=== PATIENT | male | born 1930 | race Caucasian/White ===

== ENCOUNTER 2019-01-24 06:13 | Day surgery (SDC) | payer OTHER, MEDICARE ==
--- NOTE | 2019-01-23 13:59 | RAD REPORT ---
EXAM DESCRIPTION: Sharron Canseco And Marichuy (2 Views)01/23/2019 1:52 pm CLINICAL HISTORY: Preop for coronary arterial calcification. COPD COMPARISON: 2014 FINDINGS: Elevation right hemidiaphragm is unchanged. Lungs appear clear of acute infiltrate. The heart is normal size
[2019-01-23 14:46] LABS: Absolute Lymphocytes (CBC) 1.9 K/uL (0.7-4.9); Basophils % 0.8 % (0-1.3); Hematocrit 45.4 % (39.6-49.0); MPV 9.4 fL (7.6-11.3); RBC Red Blood Cell Count 5.04 M/uL (4.33-5.43)
[2019-01-23 14:50] LABS: Potassium 4.4 mmol/L (3.5-5.1); Protime INR 0.89
--- NOTE | 2019-01-23 15:15 | EKG ---
Test Date: 2019-01-23 Test Time: 13:39:18 Superintendent Power: SABINA MEASUREMENT RESULTS: Intervals: Rate: 101 RI: 192 QRSD: 154 QT: 422 QTc: 547 [place]: P: -52 RI: 192 QRS: -89 T: 53 INTERPRETIVE STATEMENTS: Sinus rhythm Left axis deviation Right bundle branch block Abnormal ECG Compared to ECG 03/24/2017 09:47:28 Left-axis deviation now present First degree AV block no longer present Myocardial infarct finding no longer present Electronically Signed On 01-23-19 15:15:49 CDT by Darin Maldonado
--- OUTSIDE RECORDS SUMMARY | 2019-01-24 06:16 | XMS REPORT ---
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 Problem Degenerative joint disease M19.90 Active Problem Type 2 diabetes mellitus with other E11.29 Active diabetic kidney complication Assessment Hyperlipidemia E78.5 Active Problem Proteinuria, unspecified R80.9 Active Assessment Renal insufficiency N28.9 Active Assessment 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 Problem 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 Problem Need for assistance due to unsteady R26.89 Active gait Problem Hyperlipidemia E78.5 Active Problem Neuropathy G62.9 Active Problem Renal insufficiency N28.9 Active Assessment Proteinuria, unspecified R80.9 Active Assessment Type 2 diabetes mellitus with other E11.29 Active diabetic kidney complication Assessment Chronic obstructive pulmonary J44.9 Active disease Assessment HTN (hypertension) I10 Active Problem Controlled diabetes mellitus type E11.9 Active II without complication Problem Nicotine dependence F17.200 Active Assessment Need for assistance due to unsteady R26.89 Active gait Problem HTN (hypertension) I10 Active Assessment Neuropathy G62.9 Active Problem Benign prostatic hypertrophy with N40.1 Active lower urinary tract symptoms (LUTS) Problem Anemia D64.9 Active Medications Medication Code Code Instructions Start End Status Dosage System Date Date Cozaar [facility] 81725835143 100 MG Orally Active 1 tablet Once a day Symbicort [facility] 97899072417 160-4.5 MCG/ACT December Inactive 2 puffs Inhalation 25, Twice a day 2018 Simvastatin [facility] 18431002839 20 MG Orally Active 1 tablet in Once a day the evening Amlodipine [facility] 43576048235 10 MG Oral Once Active 1 tablet Besylate a day CO-Q 10 [facility] 48397492799 - Orally Active not defined [place]-3 Fish Oil Glimepiride [facility] 77479995455 2 MG Orally Active 1 tablet twice day with food Metformin HCl [facility] 29167882409 1000 Orally Active 1 tablet Twice a day with meals Aspir-81 [facility] 01988024946 81 MG Orally Active 1 tablet Once a day Glimepiride [facility] 41200067029 2 Orally twice Active 1 tablet day with food Cozaar [facility] 36649568658 100 Orally Once Active 1 tablet a day Neomycin-Polym [facility] 16210498807 3.519594-4 March Active 4 drops yxin-HC Otic Three 2017 into times a day affected ear Zantac [facility] 02058493745 150 MG Orally Active 1 tablet at Twice a day bedtime Jardiance [facility] 32237206591 25 MG Orally Active 1 tablet Once a day Metformin HCl [facility] 94179312880 1000 MG Orally Active 1 tablet Twice a day with meals Vitamin C [facility] 07918779090 500 MG Orally Active 1 tablet Once a day Ranitidine HCl [facility] 31682434129 150 MG Oral Active 1 capsule Twice a day Trelegy [facility] 62999331184 100-62.5-December 27Mar Active 1 puff Ellipta MCG/INH 2018, Inhalation Once 2018 a day Albuterol [facility] 80422683023 90 MCG/ACT Active 2 puffs prn Inhalation wheezing every 6 hours Vitamin D3 [facility] 98556427941 1000 UNIT Active 1 capsule Orally Once a day Results No Known Results Summary Purpose eClinicalWorks Submission
--- OUTSIDE RECORDS SUMMARY | 2019-01-24 06:16 | XMS REPORT ---
:1930 Author Organization e[employer]Works Care Team Providers Name Role Phone Nj, Na Provider Role Unavailable Allergies, Adverse Reactions, Alerts Substance Reaction Event Type Sulfa Info Not Available Drug Allergy Problems Problem Type Condition Code Onset Dates Condition Status Problem HTN (hypertension) I10 Active Problem Chronic obstructive pulmonary J44.9 Active disease Problem Anemia D64.9 Active Problem Proteinuria, unspecified R80.9 Active Assessment Renal insufficiency N28.9 Active Problem Neuropathy G62.9 Active Assessment Neuropathy G62.9 Active Assessment Need for assistance due to unsteady R26.89 Active gait Problem Type 2 diabetes mellitus with other E11.29 Active diabetic kidney complication Problem Hyperlipidemia E78.5 Active Problem Degenerative joint disease M19.90 Active Problem Renal insufficiency N28.9 Active Problem Need for assistance due to unsteady R26.89 Active gait Assessment HTN (hypertension) I10 Active Assessment Proteinuria, unspecified R80.9 Active Assessment Chronic obstructive pulmonary J44.9 Active disease Assessment Hyperlipidemia E78.5 Active Problem 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 intervertebral disc Problem Benign prostatic hypertrophy with N40.1 Active lower urinary tract symptoms (LUTS) Assessment Type 2 diabetes mellitus with other E11.29 Active diabetic kidney complication Problem Controlled diabetes mellitus type E11.9 Active II without complication Problem Nicotine dependence F17.200 Active Medications Medication Code Code Instructions Start End Status Dosage System Date Date Glimepiride [facility] 73434615765 2 Orally twice Active 1 tablet day with food Neomycin-Polymy [facility] 41076261604 3.5-56265-0 September Active 4 drops cristhian-HC Otic Three 2017 into times a day affected ear Symb[place]ort [place] 54872201615 160-4.5 MCG/ACT Sept Active 2 puffs Inhalation 21, Twice a day 2018 Glimepiride [facility] 61468907062 2 MG Orally Active 1 tablet twice day with food Simvastatin ND 88697521146 20 MG Orally Active 1 tablet in Once a day the evening Albuterol [facility] 95215040349 90 MCG/ACT Active 2 puffs prn Inhalation wheezing every 6 hours Metformin HCl [facility] 33818257224 1000 Orally Active 1 tablet Twice a day with meals Vitamin D3 [facility] 03758445978 1000 UNIT Active 1 capsule Orally Once a day Vitamin C [facility] 82636700461 500 MG Orally Active 1 tablet Once a day Jardiance [facility] 73301528427 25 MG Orally Sept Active 1 tablet Once a day 2018 Metformin HCl [facility] 18762850303 1000 MG Orally Active 1 tablet Twice a day with meals Zantac [facility] 69598030605 150 MG Orally Active 1 tablet at Twice a day bedtime CO-Q 10 [place]-3 [facility] 66179549893 - Orally Active not defined Fish Oil Ranitidine HCl [facility] 95162605837 150 MG Oral Active 1 capsule Twice a day Aspir-81 [facility] 48467626963 81 MG Orally Active 1 tablet Once a day Amlodipine [facility] 74599351329 10 MG Oral Once Active 1 tablet Besylate a day Cozaar [facility] 12825691637 100 Orally Once Active 1 tablet a day Cozaar [facility] 01161124874 100 MG Orally Active 1 tablet Once a day Results No Known Results Summary Purpose eClinicalWorks Submission
[2019-01-24] MEDS ORDERED: NA CHLORIDE 0.9% 500 ML ONE (06:57)
[2019-01-24] MEDS ORDERED: LIDOCAINE 1% MPF 30 ML VIAL ONE (06:57)
[2019-01-24] MEDS ORDERED: HEPA 1000U/500MLS 1,000 UNIT/500 ML BAG IV ONE (06:57)
[2019-01-24] MEDS ORDERED: NA CHLORIDE 0.9% 0 ML ONE (07:42)
[2019-01-24] MEDS ORDERED: ATROPINE SULF 1 MG/10 ML SYR IV ONE (07:42)
[2019-01-24] MEDS ORDERED: MIDAZOLAM HCL 2 MG/2 ML INJ ONE (07:42)
[2019-01-24] MEDS ORDERED: FENTANYL CITR 100 MCG/2 ML ONE (07:42)
[2019-01-24 08:52] VITALS: TEMP 97.2
[2019-01-24 10:22] VITALS: O2SAT 97
[2019-01-24 10:23] VITALS: BP 159/75
--- NOTE | 2019-01-24 10:49 | OP ---
Date of Procedure: 01/24/2019 Surgeon: Placido Delgadillo MD Room Service Clerk: Moriah Romero. Angio-Seal was used to close the case. The patient will go home today and follow up with me in the ffice in the next 2 weeks. History Of Present Illness: Mr. 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 Procedures: Left heart catheterization, selective coronary arteriogram. Indication: Chest pain and abnormal stress test. Description Of Procedure: The patient was prepped and draped in routine sterile fashion. A 6-Yi sheath introduced in the right common femoral artery. Angiography there was normal except for sever e calcifications along the iliac arteries. No focal stenosis. Dayo catheter was used to do the h eart catheterization. The patient had a normal RCA that was dominant. He had a normal circumflex. The LAD had about 20% stenosis after the second diagonal. Otherwise, there was a large vessel that w as widely patent. There were no complications. Blood Loss: 5 cc. Anesthesia: Total conscious sedation was 30 minutes. Final Diagnoses: Mild coronary artery disease. Plan: Plan is for medical therapy. CARMELO/BOB Voice ID: [id number] Report ID: [id number]
== END 2019-01-24 10:17 | disposition home or self-care (01) ==
LOC: CCL 06:13
DX: I25.10 Atherosclerotic heart disease of native coronary artery without angina pectoris (principal); I65.23 Occlusion and stenosis of bilateral carotid arteries; I11.0 Hypertensive heart disease with heart failure; I50.32 Chronic diastolic (congestive) heart failure; E78.6 Lipoprotein deficiency; I45.10 Unspecified right bundle-branch block; R94.31 Abnormal electrocardiogram [ECG] [EKG]; E11.9 Type 2 diabetes mellitus without complications; J44.9 Chronic obstructive pulmonary disease, unspecified; K21.9 Gastro-esophageal reflux disease without esophagitis; N40.0 Benign prostatic hyperplasia without lower urinary tract symptoms; Z79.82 Long term (current) use of aspirin; Z79.84 Long term (current) use of oral hypoglycemic drugs; Z79.51 Long term (current) use of inhaled steroids; Z79.899 Other long term (current) drug therapy
CPT/HCPCS: 93005; 85025; 80048; 36415; 85610; 82962 ×2; 85730; 71046; 93454; C1893; C1760; J2250; J3010; J0583

== ENCOUNTER 2020-08-05 08:53 | Day surgery (SDC) | payer OTHER ==
[2020-08-02 10:13] LABS: Absolute Lymphocytes (CBC) 1.7 K/uL (0.7-4.9); Basophils % 0.7 % (0-1.3); Hematocrit 43.3 % (39.6-49.0); Lymphocytes % 21.7 % (15.3-44.8); MPV 8.9 fL (7.6-11.3); RBC Red Blood Cell Count 4.95 M/uL (4.33-5.43)
--- NOTE | 2020-08-02 10:19 | RAD REPORT ---
EXAM DESCRIPTION: Sharron Canseco And Marichuy (2 Views)08/02/2020 9:55 am CLINICAL HISTORY: Preop for cardiac catheterization. Lung cancer COMPARISON: 2019 FINDINGS: Right pleural thickening with mild right basilar chronic opacities. Right lung volume loss . The lungs appear clear of acute infiltrate. The heart is normal size IMPRESSION: No acute abnormalities displayed
[2020-08-02 10:25] LABS: Potassium 4.1 mmol/L (3.5-5.1)
[2020-08-02 10:36] LABS: Protime INR 0.91
--- NOTE | 2020-08-02 11:05 | EKG ---
Test Date: 2020-08-02 Test Time: 09:35:06 Track Repairer Helper: MACIEL MEASUREMENT RESULTS: Intervals: Rate: 92 [place]: QRSD: 154 QT: 418 QTc: 516 [place]: P: [place]: QRS: -87 T: 36 INTERPRETIVE STATEMENTS: Wide QRS rhythm Left axis deviation Right bundle branch block Abnormal ECG Compared to ECG 01/23/2019 13:39:18 Uncertain supraventricular rhythm now present Sinus rhythm no longer present Electronically Signed On 08-02-20 11:05:00 BLOCK SEALER by Placido Delgadillo
--- OUTSIDE RECORDS SUMMARY | 2020-08-05 09:21 | XMS REPORT | Continuity of Care Document ---
:1930 Author Organization [facility] t Address [address] [place] [address] Care Team Providers Name Role Phone Unavailable Unavailable Unavailable Problems This patient has no known problems. Allergies, Adverse Reactions, Alerts Allergy Allergy Status Severity Reaction(s) Onset Inactive Treating Comm ents Source Name Type Date Date Clinician Sulfa Adverse Active Info Not [facility] Reaction Available [facility] Clinics Medications Ordered Filled Start Stop Current Ordering Indication Dosage Frequency Signature Comments Components Source Medication Medication Date Date Medication? Clinician (SIG) Name Name Nasonex Nasonex 2020-0 Yes Na Nj [address] [facility] 1-10 in each [facility]ics Azelastine Azelastine 2019-0 Yes Na Nj [address] [facility] HCl HCl 1-10 into [facility] affected [facility] 00 eye l [facility]ics Famotidine Famotidine 2018-07 Yes Na Nj [address] [facility] 0-08 at bedtime [facility] Neomycin-Po Neomycin-Po Yes Na Nj [address] [facility] lymyxin-HC lymyxin-HC 3-05 into Tali es - 00:00: affected [facility]oria 00 ear l [facility] ent Clinics Aspir-81 Aspir-81 Yes Na Nj [address] [facility] Cozaar Cozaar Yes Na Nj [address] [facility] Ranitidine Ranitidine Yes Na Nj [address] [facility] HCl HCl [facility] Amlodipine Amlodipine Yes Na Nj [address] [facility] Besylate Besylate [facility] CO-Q 10 CO-Q 10 Yes Na Nj not [facility] [place]-3 [place]-3 defined [facility] Fish Oil Fish Oil [facility] Zantac Zantac Yes Na Nj [address] [facility] at bedtime [facility] Anoro Anoro Yes Na Nj [address] [facility] Ellipta Ellipta [facility] Glimepiride Glimepiride Yes Na Nj [address] [facility] with food [facility] Metformin Metformin Yes Na Nj [address] [facility] HCl HCl with meals [facility] Vitamin C Vitamin C Yes Na Nj [address] [facility] Vitamin D3 Vitamin D3 Yes Na Nj [address] [facility] Metformin Metformin Yes Na Nj [address] [facility] HCl HCl with meals [facility] Simvastatin Simvastatin Yes Na Nj [address] [facility] in the [facility] evening [facility] Albuterol Albuterol Yes Na Nj [address] [facility] prn [facility] wheezing [facility] Jardiance Jardiance Yes Na Nj [address] [facility] Procedures This patient has no known procedures. Encounters Start End Encounter Admission Attending Care Care Encounter Source Date/Time Date/Time Type Type Clinicians Facility Department ID 2020-07-26 2020-07-26 Outpatient [facility] [id number] [facility] 2020-07-22 2020-07-22 Outpatient [facility] [id number] [facility] 2020-07-15 2020-07-15 Outpatient [facility] [id number] [facility] 2020-07-12 2020-07-12 Outpatient [facility] [id number] [facility] 2020-07-12 2020-07-12 Out[facility] [id number] [facility] 2020-06-26 2020-06-26 Out[facility] [id number] [facility] 2020-05-02 2020-05-02 Outpatient [facility] [id number] [facility] 2020-04-19 2020-04-19 Outpatient [facility] [id number] [facility] 2020-04-04 2020-04-04 Outpatient [facility] [id number] [facility] 2019-12-25 2019-12-25 [facility] [id number] [facility] 08:40[facility]00 08:40:00 t Amistad Amistad Gaud[facility] - [facility] Clinics 2019-12-12 2019-12-12 [facility] [id number] [facility] 10:45:00 10:45:00 t Amistad Amistad Gaudena s - Drive [facility] Clin[facility] 2019-09-22 2019-09-22 [facility] [id number] 08:20:00 08:20:00 t Amistad Amistad Gaudena s - Drive [facility] Clin[facility] 2019-07-14 2019-07-14 [facility] [id number] [facility] 09:20:00 09:20:00 t Amistad Amistad Gaudena s - Drive [facility] Clin[facility] 2019-06-08 2019-06-08 [facility] [id number] 11:40:00 11:40:00 t Amistad Amistad Gaudena s - Drive [facility] Out[facility] Clinics 2019-05-19 2019-05-19 [facility] [id number] [facility] 11[facility]44:00 11:44:00 t [facility] Outpati ent Clinics 2019-04-11 2019-04-11 [facility] [id number] [facility] 09:00:00 09:00:00 t [employer] [facility] Outpati ent Clinics 2018-12-27 2018-12-27 [facility] [id number] [facility] 08:40:00 08:40:00 t [employer] [facility] Outpati ent Clinics 2018-09-26 2018-09-26 [facility] [id number] [facility] 08:30:00 08:30:00 t [employer] [facility] Outpati ent Clinics Results This patient has no known results.
[2020-08-05] MEDS ORDERED: NA CHLORIDE 0.9% 500 ML ONE (09:22)
--- OUTSIDE RECORDS SUMMARY | 2020-08-05 09:22 | XMS REPORT ---
:[address] [facility] Address [address], [address] [place] [address] Care Team Providers Name Role Phone Nj Unavailable [phone] PROBLEMS Type Condition ICD9-CM HOT85-WO Onset Condition SNOMED Code Notes Code Code Dates Status Problem Controlled diabetes E11.9 Active 977141401 mellitus type II without complication Problem HTN (hypertension) I10 Active 23981638 Problem Nicotine dependence F17.200 Active 93247555 Problem Hyperlipidemia E78.5 Active 41390188 Problem Anemia D64.9 Active 500391987 Problem Degenerative joint M19.90 Active 523928269 disease Problem Chronic obstructive J44.9 Active 84225541 pulmonary disease Problem Need for assistance R26.89 Active 083925405 due to unsteady gait Problem Renal insufficiency N28.9 Active 874038474 Problem Neuropathy G62.9 Active 738633226 Problem 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 Problem Degeneration of M51.37 Active 18541200 lumbosacral intervertebral disc Problem PAD (peripheral I73.9 Active 117162960 artery disease) Problem Benign prostatic N40.1 Active 28281402409951 hypertrophy with lower urinary tract symptoms (LUTS) Problem Proteinuria, R80.9 Active 55664445 unspecified Problem Type 2 diabetes E11.29 Active 093022223 mellitus with other diabetic kidney complication Problem 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 361482934 osteoarthritis of both hips Problem Gastroesophageal K21.9 Active 886857764 reflux disease, esophagitis presence not specified ALLERGIES Allergen (clinical drug Drug/Non Drug Allergy Reaction Allergy Type Onset Date Status ingredient) documented on EMR Sulfa Unknown Drug Allergy Active ENCOUNTERS from 1930 to 2020-07-22 Encounter Location Date Provider Diagnosis Mala Ray [address] Jul, Luann MARCUS ([place], [place] artery iskatharina) I73.9 [id number] IMMUNIZATIONS Vaccine Route Administration Date Status FluAD IM Intramuscular Mar 05, 2020 Administered SOCIAL HISTORY Tobacco Use: Social History Observation Description Date Details (start date - stop date) Former Smoker Sex Assigned At : Social History Observation Description Sex Assigned At Unknown PHQ9 Question Answer Notes Little interest or pleasure in doing things Not at all Feeling down, depressed, or hopeless Not at all Trouble falling or staying asleep or sleeping too much Not a t all Feeling tired or having little energy Not at all Poor appetite or overeating Not at all Feeling bad about yourself, or that you are a failure, or martin ve let Not at all yourself or your family down Trouble concentrating on things, such as reading the newspap er or Not at all watching television Moving or speaking so slowly that other people could have no ticed; Not at all or the opposite, being so fidgety or restless that you have been moving around a lot more than usual Total Score 0 Thoughts that you would be better off or of hurting you rself in Not at all some way Tobacco Use/Smoking Question Answer Notes Are you a former smoker Additional Findings: Tobacco Non-User Ex-moderate cigarette smoker (10-19/day) Tobacco use other than smoking: Question Answer Notes Are you an other tobacco user? No REASON FOR REFERRAL No Information VITAL SIGNS No information MEDICATIONS Medication SIG (Take, Route, Notes Start Date End Date Status Frequency, Duration) Glimepiride 2 MG 1 tablet with food Active Orally twice day for 90 days Famotidine 20 MG 2 tablets at bedtime Apr, Active as needed Orally once daily for 90 days Nasonex 50 MCG/ACT 2 sprays in each Jul, Active nostril Nasally Once a day for 30 days Cozaar 100 MG TAKE 1 TABLET BY MOUTH Active ONCE DAILY for 90 Simvastatin 20 MG TAKE 1 TABLET BY MOUTH Active IN THE EVENING ONCE DAILY for 90 Simvastatin 20 MG 1 tablet in the Ac tive evening Orally Once a day for 90 days Jardiance 25 MG 1 tablet Orally Once a Active day for 90 Diclofenac Sodium 1 % 2 gram application to Apr, 2 Jul, Active affected area Transdermal Three times a day for 30 day(s) Cozaar 100 MG 1 tablet Orally Once a Active day for 90 days Metformin HCl 1000 MG 1 tablet with meals Active Orally Twice a day for 90 days Vitamin D3 1000 UNIT 1 capsule Orally Once Unknown a day Zantac 150 MG 1 tablet at bedtime Un known Orally Twice a day Azelastine HCl 0.05 % 1 drop into affected Jul, Active eye Ophthalmic twice a day prn itchy eyes for 30 days Ranitidine HCl 150 MG 1 capsule Oral Twice a Active day for 90 Glimepiride 2 MG TAKE 1 TABLET BY MOUTH Active WITH FOOD TWICE DAY for 90 Famotidine 40 MG TAKE 1 TABLET BY MOUTH Active EVERY DAY for 90 Amlodipine Besylate 10 1 tablet Oral Once a Active MG day for 90 days Albuterol 90 MCG/ACT 2 puffs prn wheezing Active Inhalation every 6 hours for 90 days Yltlzjdg-Kooemknkz-GP 4 drops into affected Sep, Unknown 3.5-10303-3 ear Otic Three times a day for 7 days Anoro Ellipta 1 puff inhaled once a Active 62.5mcg/25 mcg day for 90 days Aspir-81 81 MG 1 tablet Orally Once a Unknown day CO-Q 10 [place]-3 Fish Orally Unkn own Oil - Metformin HCl 1000 1 tablet with meals Unknown Orally Twice a day for 90 Vitamin C 500 MG 1 tablet Orally Once a Unknown day Glimepiride 2 1 tablet with food Un known Orally twice day for 90 Cozaar 100 1 tablet Orally Once a Un known day for 90 PROCEDURES No Information RESULTS No Results REASON FOR VISIT arterial doppler MEDICAL (GENERAL) HISTORY Type Description Date Medical History HTN (hypertension) Medical History Hyperlipidemia Medical History Controlled diabetes mellitus type II wit hout complication Medical History Anemia Medical History Degeneration of lumbosacral intervertebr al disc Medical History Degenerative joint disease Medical History Microalbuminuria Medical History Nicotine dependence Medical History Chronic obstructive pulmonary disease Medical History Benign prostatic hypertrophy with lower urinary tract symptoms (LUTS) 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 Goals Section No Information Health Concerns No Information MEDICAL EQUIPMENT No Information MENTAL STATUS No Information FUNCTIONAL STATUS No Information ASSESSMENTS Encounter Date Diagnosis Assessment Notes Treatment Notes Treatm ent Clinical Notes Jul, PAD (peripheral artery disease) (ICD-10 - I73.9) PLAN OF TREATMENT Medication Medication Name Sig Start Date Stop Date Famotidine 40 MG TAKE 1 TABLET BY MOUTH EVERY DAY for 90 Next Appt Details Provider Name:Luann Nj, 2020-09-26 08:0 0:00 AM, [address], [address], [place], [address], Provider Name:Luann Nj, 2020-10-03 08:2 0:00 AM, [address], [address], [place], [address], Insurance Providers Payer Name Payer Address Payer Insured Patient Coverage Cover age End Phone Name Relationship to Start Date Brady e Insured [employer] [address] [address] [phone] [place] MEDICARE [place] [address] [phone]
--- OUTSIDE RECORDS SUMMARY | 2020-08-05 09:23 | XMS REPORT ---
:1930 Author Organization [facility] Address [address] Fernandez, [address] [place] [address] Care Team Providers Name Role Phone Nj Unavailable [phone] PROBLEMS Type Condition ICD9-CM KXA49-IO Onset Condition SNOMED Code Notes Code Code Dates Status Problem Controlled diabetes E11.9 Active 344656375 mellitus type II without complication Problem HTN (hypertension) I10 Active 80613529 Problem Nicotine dependence F17.200 Active 85242824 Problem Hyperlipidemia E78.5 Active 85055110 Problem Anemia D64.9 Active 593907539 Problem Degenerative joint M19.90 Active 964972855 disease Problem Chronic obstructive J44.9 Active 50140608 pulmonary disease Problem Need for assistance R26.89 Active 195193360 due to unsteady gait Problem Renal insufficiency N28.9 Active 914123586 Problem Neuropathy G62.9 Active 573862781 Problem Seasonal allergic J30.1 Active 44201201 rhinitis due to pollen Problem 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 Problem PAD (peripheral I73.9 Active 129619500 artery disease) Problem Benign prostatic N40.1 Active [id number] hypertrophy with lower urinary tract symptoms (LUTS) Problem Proteinuria, R80.9 Active 72617248 unspecified Problem Type 2 diabetes E11.29 Active 049576234 mellitus with other diabetic kidney complication Problem 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 856894284 osteoarthritis of both hips Problem Gastroesophageal K21.9 Active 760635060 reflux disease, esophagitis presence not specified ALLERGIES Allergen (clinical drug Drug/Non Drug Allergy Reaction Allergy Type Onset Date Status ingredient) documented on EMR Sulfa Unknown Drug Allergy Active ENCOUNTERS from 1930 to 2020-08-01 Encounter Location Date Provider Diagnosis Mala Ray [facility] Amaya [facility] [address], [place] [address] IMMUNIZATIONS Vaccine Route Administration Date Status FluAD [...] Famotidine 20 MG 2 tablets at bedtime as Apr, Active needed Orally once daily for 90 days Nasonex 50 MCG/ACT 2 sprays in each nostril Jul, Active Nasally Once a day for 30 days Cozaar 100 MG TAKE 1 TABLET BY MOUTH Active ONCE DAILY for 90 Simvastatin 20 MG TAKE 1 TABLET BY MOUTH Active IN THE EVENING ONCE DAILY for 90 Jardiance 25 MG 1 tablet Orally Once a Active day for 90 Simvastatin 20 MG 1 tablet in the evening Active Orally Once a day for 90 days Cozaar 100 MG 1 tablet Orally Once a Active day for 90 days Metformin HCl 1000 MG 1 tablet with meals Active Orally Twice a day for 90 days Vitamin D3 1000 UNIT 1 capsule Orally Once a Unknown day Zantac 150 MG 1 tablet at bedtime Un known Orally Twice a day Azelastine HCl 0.05 % 1 drop into affected eye Jul, 0 Active Ophthalmic twice a day prn itchy eyes for 30 days Ranitidine HCl 150 MG 1 capsule Oral Twice a Active day for 90 Glimepiride 2 MG TAKE 1 TABLET BY MOUTH Active WITH FOOD TWICE DAY for 90 Famotidine 40 MG TAKE 1 TABLET BY MOUTH Active EVERY DAY for 90 Amlodipine Besylate 10 MG 1 tablet Oral Once a day Active for 90 days Albuterol 90 MCG/ACT 2 puffs prn wheezing Active Inhalation every 6 hours for 90 days Wvvqkgdw-Ttptlrmro-UD 4 drops into affected Sep, Unknown 3.5-17886-0 ear Otic Three times a day for 7 days Anoro Ellipta 62.5mcg/25 1 puff inhaled once a Active mcg day for 90 days Aspir-81 81 MG 1 tablet Orally Once a Unknown day CO-Q 10 [employer]-3 Fish Oil Orally Unknown - Metformin HCl 1000 1 tablet with meals Unknown Orally Twice a day for 90 Vitamin C 500 MG 1 tablet Orally Once a Unknown day Glimepiride 2 1 tablet with food Un known Orally twice day for 90 Cozaar 100 1 tablet Orally Once a Un known day for 90 PROCEDURES No Information RESULTS No Results REASON FOR VISIT Referral Issue MEDICAL (GENERAL) HISTORY Type Description Date Medical [...] No Information FUNCTIONAL STATUS No Information ASSESSMENTS No Information PLAN OF TREATMENT Medication Medication Name Sig Start Date Stop Date Famotidine 40 MG TAKE 1 TABLET BY MOUTH EVERY DAY for 90 Next Appt Details Provider Name:Luann Nj, 2020-09-26 08:0 0:00 AM, [address] Amaya, [address], [place], [address], Provider Name:Luann Nj 2020-10-03 08:2 0:00 AM, [address], [address], [place], [address], Insurance Providers Payer Name Payer Address Payer Insured Patient Coverage Cover age End Phone Name Relationship to Start Date Brady e Insured [employer] [address] [address] [phone] [place] [employer] [place] [address] [id number]
[2020-08-05] MEDS ORDERED: HEPA 1000U/500MLS 2,000 UNIT/1,000 ML BAG IV ONE (10:28)
[2020-08-05] MEDS ORDERED: MIDAZOLAM HCL 2 MG/2 ML INJ ONE (10:41)
[2020-08-05] MEDS ORDERED: FENTANYL CITR 100 MCG/2 ML ONE (10:42)
[2020-08-05] MEDS ORDERED: ATROPINE SULF 1 MG/10 ML SYR IV ONE (10:42)
[2020-08-05] MEDS ORDERED: NITROGLYCERIN 0.4 MG/TAB SL ONE (10:49)
--- NOTE | 2020-08-05 11:43 | OP ---
Date of Procedure: 08/05/2020 Surgeon: ASHLEIGH BROWNING Procedure Performed: Distal aortogram with runoff and peripheral angiogram. Indications: Severe peripheral vascular disease. Access: Left femoral artery 4-Niuean closed with manual pressure. Complications: None. Bleeding: Less than 5 mL. Description Of Procedure: After risks, benefits, and alternatives were explained, the patient agreed to proceed and signed informed consent. The patient was brought into the cardiac catheterization la boratory, prepped and draped in usual sterile fashion. Then, under the fluoroscopy and ultrasound gu idance, we accessed the left femoral artery. We used fentanyl and Versed in incremental doses to ach ieve adequate moderate sedation. Then, I placed a 4-Niuean [place] sheath in the right femoral benji ry and we took a 4-Niuean pigtail catheter into the distal aorta over a J-wire and peripheral angiogr am with runoff was done and then removed the catheter. Sheath was removed and applied pressure with good hemostasis. Findings: 1.Distal aorta is patent. 2.Right common iliac artery has severe, 90% to 95% stenosis, heavily calcified. 3.Left common iliac artery has 80% to 90% stenosis, also calcified. 4.Patent internal iliacs, common femoral arteries. 5.Patent profunda, both sides. 6.The right SFA has diffuse 60% disease with heavy calcification and distal total occlusion right ab ove the knee, short [employer], reconstitutes above the knee as well. The flow in the woaeo-btt-feks arteri es is very slow with occluded anterior tibial artery. 7.The left SFA is with diffuse 70% to 80% stenosis with good ABBY-3 flow. 8.Patent arteries below the knee on the left side. Conclusion: Severe bilateral peripheral vascular disease as described above. Plan: 1.Staged intervention to both common iliacs at 1 session and then the right SFA on another session. The procedure will be staged due to the load of contrast used today. We will schedule the patient f or intervention later this week. 2.Discharge home once criteria met. SR/MODL Voice ID: [id number] Report ID: [id number]
[2020-08-05 14:48] VITALS: BP 160/75
[2020-08-05 15:37] VITALS: TEMP 97.3; O2SAT 94
== END 2020-08-05 15:15 | disposition home or self-care (01) ==
LOC: PRE 08:53 → CCL 15:15
DX: I70.213 Atherosclerosis of native arteries of extremities with intermittent claudication, bilateral legs (principal); Z20.822 Contact with and (suspected) exposure to COVID-19; E11.9 Type 2 diabetes mellitus without complications; I11.0 Hypertensive heart disease with heart failure; I50.32 Chronic diastolic (congestive) heart failure; I25.10 Atherosclerotic heart disease of native coronary artery without angina pectoris; I35.9 Nonrheumatic aortic valve disorder, unspecified; I65.23 Occlusion and stenosis of bilateral carotid arteries; E78.2 Mixed hyperlipidemia; J44.9 Chronic obstructive pulmonary disease, unspecified; K21.9 Gastro-esophageal reflux disease without esophagitis; N40.0 Benign prostatic hyperplasia without lower urinary tract symptoms; Z79.84 Long term (current) use of oral hypoglycemic drugs
CPT/HCPCS: 93005; 85025; 80048; 36415; 85610; 82947; 85730; 71046; 36200; 75630; U0002; C1893; J2250; J3010; J7040; J1644

== ENCOUNTER 2020-08-08 11:09 | Day surgery (SDC) | payer OTHER ==
--- OUTSIDE RECORDS SUMMARY | 2020-08-08 11:01 | XMS REPORT | Continuity of Care Document ---
:1930 Author Organization [facility] t Address [address] [place] [address] Care Team Providers Name Role Phone Unavailable Unavailable Unavailable Problems This patient has no known problems. Allergies, Adverse Reactions, Alerts Allergy Allergy Status Severity Reaction(s) Onset Inactive Treating Comm ents Source Name Type Date Date Clinician Sulfa Adverse Active Info Not [facility] Reaction Available [facility] ent Clinics Medications Ordered Filled Start Stop Current Ordering Indication Dosage Frequency Signature Comments Components Source Medication Medication Date Date Medication? Clinician (SIG) Name Name Nasonex Nasonex 2020-0 Yes Na Nj [address] [facility] 1-10 in each [facility] Azelastine Azelastine 2019-0 Yes Na Nj [address] [facility] HCl HCl 1-10 into [facility]: affected [facility] Famotidine Famotidine 2018-07 Yes Na Nj [address] [facility] 0-08 at bedtime [facility] Neomycin-Po Neomycin-Po Yes Na Nj [address] [facility] lymyxin-HC lymyxin-HC 3-05 into [place]ali es - 00:00: affected [facility] 00 [facility] Aspir-81 Aspir-81 Yes Na Nj [address] [facility] Cozaar Cozaar Yes Na Nj [address] [facility] Ranitidine Ranitidine Yes Na Nj [address] [facility] [address] [facility] HCl [facility] Amlodipine Amlodipine Yes Na Nj [address] [facility] Besylate Besylate [facility] CO-Q 10 CO-Q 10 Yes Na Nj not [facility] [place]-3 [place]-3 defined [facility] - Fish Oil Fish Oil [...] tablet [facility] Procedures This patient has no known procedures. Encounters Start End Encounter Admission Attending Care Care Encounter Source Date/Time Date/Time Type Type Clinicians Facility Department ID 2020-07-26 2020-07-26 Outpatient [facility] [id number] [facility] 2020-07-22 2020-07-22 [facility] [id number] 2020-07-15 2020-07-15 [facility] [id number] [facility] 2020-07-12 2020-07-12 Out[facility] [id number] [facility] 2020-07-12 2020-07-12 Out[facility] [id number] [facility] 2020-06-26 2020-06-26 [facility] [id number] [facility] 2020-05-02 2020-05-02 Out[facility] [id number] [facility] 2020-04-19 2020-04-19 Out[facility] [id number] [facility] 2020-04-04 2020-04-04 Out[facility] [id number] [facility] 2019-12-25 2019-12-25 [facility] [id number] [address] 08:40:00 08:40:00 [place] [facility] Out[facility] ent Clinics 2019-12-12 2019-12-12 [facility] [id number] 10:45:00 10:45:00 [place] [facility] Out[facility] Clinics 2019-09-22 2019-09-22 [facility] [id number] 08:20:00 08:20:00 [place] [facility] [place] [facility] Out[facility] ent Clinics 2019-07-14 2019-07-14 [facility] [id number] [address] 09:20:00 09:20:00 [place] [facility] [place] [facility] Out[facility] ent Clinics 2019-06-08 2019-06-08 [facility] [id number] 11[facility]40:00 11:40:00 [place] [facility] [place] - [facility] Medicine Outpat[facility] ent Clinics 2019-05-19 2019-05-19 [facility] [id number] 11[facility]44:00 11:44:00 t [place] [employer] [facility] 2019-04-11 2019-04-11 [facility] [id number] 09:00:00 09:00:00 t [employer] [facility] 2018-12-27 2018-12-27 [facility] [id number] 08:40:00 08:40:00 t [employer] [facility] 2018-09-26 2018-09-26 [facility] [id number] 08:30:00 08:30:00 t [employer] [facility] Results This patient has no known results.
--- OUTSIDE RECORDS SUMMARY | 2020-08-08 11:16 | XMS REPORT | Continuity of Care Document ---
:1930 Author Organization [facility] t Address [address] [place] [address] Care Team Providers Name Role Phone Unavailable Unavailable Unavailable Problems This patient has no known problems. Allergies, Adverse Reactions, Alerts Allergy Allergy Status Severity Reaction(s) Onset Inactive Treating Comm ents Source Name Type Date Date Clinician Sulfa Adverse Active Info Not [facility] Reaction Available [facility] ent Clinics Medications Ordered Filled Start Stop Current Ordering Indication Dosage Frequency Signature Comments Components Source Medication Medication Date Date Medication? Clinician (SIG) Name Name Nasonex Nasonex 2020-0 Yes Na Nj [address] [facility] 1-10 in each [facility] Azelastine Azelastine 2019-0 Yes Na Nj [address] [facility] [address] HCl HCl 1-10 into [facility]: affected [facility] Famotidine Famotidine 2018-07 Yes Na Nj [address] [facility] 0-08 at bedtime [facility] Neomycin-Po Neomycin-Po Yes Na Nj [address] lymyxin-HC lymyxin-HC 3-05 into [facility]ali es - 00:00: affected [facility] 00 [facility] Aspir-81 Aspir-81 Yes Na Nj [address] [facility] Cozaar Cozaar Yes Na Nj [address] [facility] Ranitidine Ranitidine Yes Na Nj [address] HCl HCl [facility] Amlodipine Amlodipine Yes Na Nj [address] [facility] Besylate Besylate [facility] CO-Q 10 CO-Q 10 Yes Na Nj not [facility] [place]-3 [place]-3 defined [facility] Fish Oil Fish Oil [...] tablet [facility] Procedures This patient has no known procedures. Encounters Start End Encounter Admission Attending Care Care Encounter Source Date/Time Date/Time Type Type Clinicians Facility Department ID 2020-07-26 2020-07-26 Outpatient [facility] [id number] [facility] 2020-07-22 2020-07-22 Outpatient [facility] [id number] [facility] 2020-07-15 2020-07-15 Outpatient [facility] [id number] [facility] 2020-07-12 2020-07-12 Outpatient [facility] [id number] [facility] 2020-07-12 2020-07-12 Outpatient [facility] [id number] [facility] 2020-06-26 2020-06-26 Outpatient [facility] [id number] [facility] 2020-05-02 2020-05-02 Outpatient [facility] [id number] [facility] 2020-04-19 2020-04-19 Outpatient [facility] [id number] [facility] 2020-04-04 2020-04-04 Outpatient [facility] [id number] [facility] 2019-12-25 2019-12-25 [facility] [id number] 08:40:00 08:40:00 [place] [employer] - [facility] l Medicine Outpati ent Clinics 2019-12-12 2019-12-12 [facility] [id number] 10:45:00 10:45:00 [place] [employer] - Drive [facility] Outpat[facility] ent Clinics 2019-09-22 2019-09-22 [facility] [id number] 08:20:00 08:20:00 [place] [employer] - [address] [facility] Medicine Outpat[facility] ent Clinics 2019-07-14 2019-07-14 [facility] [id number] 09:20:00 09:20:00 [place] [employer] - [address] [facility] Medicine Outpat[facility] ent Clinics 2019-06-08 2019-06-08 [facility] [id number] 11:40:00 11:40:00 t [place] [employer] - Drive [facility] Medicine Outpati ent Clinics 2019-05-19 2019-05-19 [facility] [id number] 11:44:00 11:44:00 t [employer] [facility] Outpati ent Clinics 2019-04-11 2019-04-11 [facility] [id number] 09:00:00 09:00:00 t [employer] [facility] Outpati ent Clinics 2018-12-27 2018-12-27 [facility] [id number] 08:40:00 08:40:00 t [employer] [facility] Outpat[facility] ent Clinics 2018-09-26 2018-09-26 [facility] [id number] [facility] 08:30:00 08:30:00 t [employer] [facility] Outpat[facility] ent Clinics Results This patient has no known results.
[2020-08-08] MEDS ORDERED: HEPARIN 5000 UNIT/ML 1 ML VIAL ONE (11:31)
[2020-08-08] MEDS ORDERED: LIDOCAINE 1% 20 ML MDV ONE (11:31)
[2020-08-08] MEDS ORDERED: HEPA 1000U/500MLS 2,000 UNIT/1,000 ML BAG IV ONE ×2 (11:31→11:34)
[2020-08-08] MEDS ORDERED: MIDAZOLAM HCL 2 MG/2 ML INJ ONE (11:32)
[2020-08-08] MEDS ORDERED: VERAPAMIL HCL 10 MG/4 ML VIAL IV ONE (11:32)
[2020-08-08] MEDS ORDERED: FENTANYL CITR 100 MCG/2 ML ONE (11:32)
[2020-08-08] MEDS ORDERED: ATROPINE SULF 1 MG/10 ML SYR IV ONE (11:33)
[2020-08-08] MEDS ORDERED: NITROGLYCERIN 100 MCG/ML SYR (for cath lab use only) IV ONE (11:33)
[2020-08-08] MEDS ORDERED: NITROGLYCERIN/D5W 25 MG/250 ML BTL IV ONE (11:33)
[2020-08-08] MEDS ORDERED: NA CHLORIDE 0.9% 500 ML ONE (11:40)
[2020-08-08] MEDS ORDERED: CLOPIDOGREL 75 MG TABLET ONE (12:12)
[2020-08-08] MEDS ORDERED: HEPA 1000U/500MLS 1,000 UNIT/500 ML BAG IV ONE (13:59)
[2020-08-08] MEDS ORDERED: ACETAMINOPHEN 325 MG TABLET ONE (16:43)
[2020-08-08] MEDS ORDERED: ONDANSETRON 4 MG/2 ML VIAL ONE (17:11)
--- NOTE | 2020-08-08 18:16 | RAD REPORT ---
EXAM DESCRIPTION: CT - Chest Abd Pelvis Wo Con - 08/08/2020 6:03 pm CLINICAL HISTORY: Chest and abdomen pain. post iliac stent COMPARISON: Lower Extremity Arterial Bilat dated 07/22/2020 TECHNIQUE: A limited noncontrast study was performed. Genitourinary system contrast is present from recent interventional procedure. All CT scans are performed using dose optimization technique as appropriate and may include automated exposure control or mA/KV adjustment according to patient size. FINDINGS: The lungs are emphysematous.Small right pleural effusion is noted.No pericardial fluid aurora dent.No intrathoracic adenopathy. Limited noncontrast assessment of the liver, spleen, pancreas, adrenal glands are normal. Small benig n renal cysts are present bilaterally. No bowel obstruction, free air, free fluid or abscess. Moderate stool is present throughout the colon . Scattered diverticula are present. No pathologic lymphadenopathy in the abdomen or pelvis. Heavy aortoiliac atherosclerosis is present. Stents are present in both proximal common iliac arterie s. No retroperitoneal hematoma evident. There is enlargement of the medial right thigh musculature wi th mixture of high and low density material likely representing intramuscular hematoma and measuring about 8 cm an transverse dimension and at least 15 cm in length the full extent of the hematoma is no t included on the study. No worrisome osseous finding. IMPRESSION: A medial right thigh hematoma is noted which measures 8 cm in transverse dimension and m inimal 15 cm in length.The entire hematoma is not included on the study. No retroperitoneal hematoma present.
[2020-08-08] MEDS ORDERED: ONDANSETRON 4 MG/2 ML VIAL IV PRN (19:03)
[2020-08-08] MEDS ORDERED: ACETAMINOPHEN 325 MG TABLET PO PRN (19:03)
[2020-08-08 19:15] LABS: Hematocrit 35.8 % (39.6-49.0)
--- NOTE | 2020-08-08 20:13 | RAD REPORT ---
EXAM DESCRIPTION: US - Extremity Nonvascular Limited - 08/08/2020 8:01 pm CLINICAL HISTORY: CT Hematoma noted Right leg pain COMPARISON: No comparisons TECHNIQUE: Real-time sonographic evaluation of the area of interest was performed. FINDINGS: Dennison mixed echo lesion is present in the medial right thigh measuring approximately 11 x 9 x 10 cm. This correlates with recent the noted hematoma on CT. No evidence of connection to any ad jacent vascular structures.
[2020-08-08] MEDS ORDERED: LIDOCAINE VISCOUS 2% SOLN 15 ML UDC ONE (21:44)
[2020-08-08 22:25] VITALS: BMI 30.5
[2020-08-08] MEDS ORDERED: NITROGLYCERIN 0.4 MG/TAB SL PRN (22:32)
[2020-08-08] MEDS ORDERED: ALBUTEROL INHALER 60 PUFF/8 GM IH PRN (22:46)
[2020-08-08] MEDS ORDERED: NA CHLORIDE 0.9% 1,000 ML IV SCH (23:00)
[2020-08-08] MEDS ORDERED: GLUCAGON 1 MG/VIAL IM PRN (23:07)
[2020-08-08] MEDS ORDERED: D50W 25 GM/50 ML SYRINGE IV PRN (23:07)
--- NOTE | 2020-08-08 23:14 | P.CNS ---
Date of Consult: 08/08/20 Reason for Consult: medical management Requesting Physician: Ignacio Lee Primary Care Provider: Dr. Nj Chief Complaint: S/P iliac stenting History of Present Illness: 89-year-old male with history of diabetes mellitus type 2, hypertension, hyperlipidemia, prostate cancer, lung cancer, PVD was scheduled for outpatient stenting of bilateral iliacs. Patient had successful stenting of bilateral iliacs today, was planned for outpatient procedure but had some postoperative tachycardia, nausea, mild hypotension. For this reason cardiology prefer to keep the patient overnight for observation, patient then developed hematoma to the right mid thigh area, this was measured at 11 x 9 x 10 cm without any identified connections any vascular structure on ultrasound. Pressure was applied to hematoma for 30-45 min followed placement of sand bag. Patient also unable to urinate at this time, bladder scan showed 664 mL, Mei catheter was attempted unsuccessfully initially with regular and treating catheters. I was successful in placing a 12 Qat[place] coude catheter, bladder was successfully drained. Sandbag placed on patient's right mid thigh, vitals stable at this time, will observe overnight. Case was discussed with cardiology. - Past Medical/Surgical History Diabetic: Yes -: HTN -: Lung cancer -: Prostate cancer -: Anxiety -: Hyperlipidemia -: COPD -: Allergic rhinitis -: Tobacco abuse -: right mlower lung removed Psychosocial/ Personal History: lives with - Social History Smoking Status: Current every day smoker, Former smoker Alcohol use: No CD- Drugs: No Caffeine use: No Place of Residence: Home <Eliezer Fernandez - Last Filed: 08/08/20 23:08> <Adarsh Worley - Last Filed: 08/19/20 20:35> Allergies Sulfa (Sulfonamide Antibiotics) Allergy (Mild, Verified 08/02/20 10:14) Hives/Rash vitamin E (d-alpha tocopherol) [vitamin E] Allergy (Verified 08/02/20 10:14) Rash Home Medications: Aspirin 81 mg PO DAILY 12/13/13 Cholecalciferol (Vitamin D3) [Vitamin D3] 1,000 iu PO BID 12/13/13 Metformin HCl [Glucophage] 1,000 mg PO BID 12/13/13 [place]-3 Fatty Acids [[place]-3] 1,000 mg PO DAILY 12/13/13 Ubidecarenone [Co Q-10] 200 mg PO DAILY 12/13/13 Budesonide/Formoterol Fumarate [Symbicort 160-4.5 Mcg Inhaler] 1 puff IH BID 12/14/13 Tiotropium [Spiriva Handihaler*] 18 mcg IH DAILYPRN PRN 12/14/13 Albuterol Sulfate [Proair Hfa] 8.5 gm IH DAILYPRN PRN 08/14/14 Iron,Carb/Vit C/Vit B12/Folic [Iron 100 Plus Tablet] 1 each PO DAILY 08/14/14 Potassium Oral Tab [Klor-Con 10 mEq Tab*] 10 meq PO DAILY 08/14/14 Tamsulosin [Flomax*] 0.4 mg PO BEDTIME 08/14/14 Losartan Potassium [Cozaar] 100 mg PO DAILY 10/22/14 Atorvastatin Calcium 40 mg PO BEDTIME 30 Days #30 tablet 08/09/20 Review of Systems Unremarkable <Eliezer Fernandez - Last Filed: 08/08/20 23:08> Physical Examination Temp Pulse Resp BP Pulse Ox 96.5 F L 96 H 19 114/58 L 97 08/08/20 23:00 08/08/20 23:00 08/08/20 23:00 08/08/20 23:00 08/08/20 22:27 General: Alert, In no apparent distress, Oriented x3 HEENT: Atraumatic, Normocephalic Neck: Supple Respiratory: Clear to auscultation bilaterally, Normal air movement Cardiovascular: No edema, Normal S1 S2 Capillary refill: <2 Seconds Gastrointestinal: Normal bowel sounds, Soft and benign, No tenderness, No masses, No rebound Musculoskeletal: No contractures, No erythema, No tenderness Integumentary: Other (Palpable hematoma right mid thigh/femoral area) Neurological: Normal speech, Normal strength at 5/5 x4 extr, Normal tone, Sensation intact Urinary: Mei catheter Laboratory Data (last 24 hrs) 08/08/20 18:56: Hgb 11.8 L, Hct 35.8 L D 08/08/20 17:46: Hct Cancelled <Eliezer Fernandez - Last Filed: 08/08/20 23:08> Temp Pulse Resp BP Pulse Ox 97.1 F 82 17 147/66 H 98 08/09/20 17:33 08/09/20 17:33 08/09/20 17:33 08/09/20 17:33 08/09/20 16:58 <Adarsh Worley - Last Filed: 08/19/20 20:35> Conclusions/Impression: Assessment S/P stenting bilateral iliacs with postoperative nausea, tachycardia and hematoma formation Diabetes mellitus type 2, hypertension, hyperlipidemia, history of prostate and lung cancer Plan S/P stenting bilateral iliacs with postoperative nausea, tachycardia and hematoma formation: Continue with sandbags overnight, bed rest for the next 6 hr. Q.6h hemoglobin hematocrits, neurovascular assessments. Continue to monitor closely overnight. Likely discharge tomorrow if patient remains stable overnight. Appreciate further input from cardiology. Diabetes mellitus type 2, hypertension, hyperlipidemia, history of prostate and lung cancer: All appear stable this time, continue home medications. A.c. HS Accu-Cheks, sliding scale insulin therapy. Critical Care: No Time Spent Managing Pts care (In Minutes): 55 <Eliezer Fernandez - Last Filed: 08/08/20 23:08> Conclusions/Impression: Plan of care reviewed as noted above by Eliezer Fernandez, and I agree with the management plan as noted above. monitor overnight. likely dc in AM <Adarsh Worley - Last Filed: 08/19/20 20:35>
[2020-08-09] MEDS ORDERED: AZELASTINE HCL OPTH PRN (00:01)
[2020-08-09 01:12] LABS: Hematocrit 34.9 % (39.6-49.0)
[2020-08-09 04:19] VITALS: O2SAT 98
[2020-08-09] MEDS: INSULIN -REGULAR HUMAN 50 UNIT/0.5 ML ML SQ SCH ×3 (07:30→16:30)
[2020-08-09] MEDS ORDERED: NASONEX NAS SCH (09:00)
[2020-08-09] MEDS ORDERED: COENZYME Q10- 200 MG CAP PO SCH (09:00)
[2020-08-09] MEDS ORDERED: ASCORBIC ACID 500 MG TABLET PO SCH (09:00)
[2020-08-09] MEDS ORDERED: RANITIDINE 150 MG TABLET PO SCH (09:00)
[2020-08-09] MEDS: DICLOFENAC 1% TOP SCH ×2 (09:00→14:00)
[2020-08-09] MEDS ORDERED: LOSARTAN POTASSIUM 50 MG TABLET PO SCH (09:00)
[2020-08-09] MEDS ORDERED: ASPIRIN 81 MG CHEWABLE TABLET PO SCH (09:00)
[2020-08-09] MEDS ORDERED: ANORO ELLIPTA IH SCH (09:00)
[2020-08-09] MEDS ORDERED: AMLODIPINE 10 MG TAB PO SCH (09:00)
[2020-08-09] MEDS ORDERED: HOME MED 1 EA UNK (Jardiance 25 MG) PO SCH (09:00)
[2020-08-09] MEDS: GLIMEPIRIDE 2 MG TABLET PO SCH ×2 (09:10→17:00)
[2020-08-09 13:13] LABS: Hematocrit 31.4 % (39.6-49.0)
--- NOTE | 2020-08-09 14:10 | RAD REPORT ---
EXAM DESCRIPTION: CT - Pelvis Wo Cont - 08/09/2020 1:58 pm CLINICAL HISTORY: eval b/l upper thigh / iliacs - hematomas Pain and swelling COMPARISON: RAD THERAPY FLD PLACE PELV dated 02/20/2010; PELVIS W CONTRAST dated 12/13/2009; Extremity Nonvascular Limited dated 08/08/2020 TECHNIQUE: All CT scans are performed using dose optimization technique as appropriate and may inclu de automated exposure control or mA/KV adjustment according to patient size. FINDINGS: A limited noncontrast examination was performed and submitted. Heavy atherosclerotic changes seen in the distal abdominal aorta and iliac vessels. Stents are presen t in both proximal common iliac arteries. Moderate stool is seen in the rectosigmoid colon. A small amount of air seen in the urinary bladder. Prostate radiation beads are present. Again noted is a oblong mildly hyperdense hematoma in the medial right thigh. The hematoma appears le ss well defined on today's study with less distinct margins relative to the surrounding muscle. It me asures approximately 6.0 x 6.2 x 17.1 cm (T x AP x CC). IMPRESSION: Medial right thigh intramuscular hematoma is again seen. The hematoma appears mildly les s prominent than on the comparative study and is less well defined on today's examination relative to the surrounding muscle tissue.
[2020-08-09 16:33] VITALS: BP 147/66; TEMP 97.1
--- NOTE | 2020-08-09 16:58 | P.PN ---
Subjective Date of Service: 08/09/20 Primary Care Provider: Dr. Nj Chief Complaint: S/P iliac stenting Subjective: Improving (feeling better, no acute events overnight. H/H stable, patient without complaints, rosenberg still in. wanting to go home) Review of Systems 10-point ROS is otherwise unremarkable Physical Examination - Vital Signs Temperature: 97.1 F Blood Pressure: 147/66 Pulse: 82 Respirations: 17 Pulse Ox (%): 98 - Studies Laboratory Data (last 24 hrs) 08/09/20 12:50: Hgb 10.2 L, Hct 31.4 L 08/09/20 07:20: Hgb 10.6 L, Hct 32.0 L 08/09/20 01:03: Hgb 11.3 L, Hct 34.9 L 08/08/20 18:56: Hgb 11.8 L, Hct 35.8 L D 08/08/20 17:46: Hct Cancelled Assessment & Plan Physician Review Additional Text: Physical Exam: Gen: NAD HEENT: normal conjunctiva, sclera anicteric CV: RRR, no murmur Pulm: CTAB, slight heavy breathing Abd: soft, NTND Ext: surgical dressing c/d/i, swelling of R upper thigh Rosenberg in place Problem List: S/P stenting bilateral iliacs with postoperative nausea, tachycardia and hematoma formation Diabetes mellitus type 2, hypertension, hyperlipidemia, history of prostate and lung cancer doing well dc chet discussed with cardiology - CT pelvis to check hematoma stability h/h stable so far patient was kept on o2 for comfort overnight. SpO2 >92% on room air, seems to have slight heavy breathing, but states this is his baseline anticipate dc today Time Spent Managing Pts Care (In Minutes): 35
[2020-08-09] MEDS ORDERED: ATORVASTATIN 10 MG TAB PO SCH (21:00)
[2020-08-09] MEDS ORDERED: FAMOTIDINE 20 MG TAB PO SCH (21:00)
--- NOTE | 2020-08-09 21:52 | P.DS ---
Discharge Date: 08/09/20 Primary Care Provider: Dr. Nj Disposition: ROUTINE DISCHARGE Discharge Condition: GOOD Reason for Admission: S/P iliac stenting Procedures: PAD S/P stenting bilateral iliacs 08/[address] abd/pelvis (08/08): A medial right thigh hematoma is noted which measures 8 cm in transverse dimension and minimal 15 cm in length.The entire hematoma is not included on the study. No retroperitoneal hematoma present. CT pelvis (08/09): Again noted is a oblong mildly hyperdense hematoma in the medial right thigh. The hematoma appears less well defined on today's study with less distinct margins relative to the surrounding muscle. It measures approximately 6.0 x 6.2 x 17.1 cm (T x AP x CC). Problem List: PAD s/p stenting bilateral iliacs COPD HTN DM2 h/o prostate cancer h/o lung cancer s/p RLL lobectomy Anxiety Brief History of Present Illness: 89-year-old male with history of diabetes mellitus type 2, hypertension, hyperlipidemia, prostate cancer, lung cancer, PVD was scheduled for outpatient stenting of bilateral iliacs. Patient had successful stenting of bilateral iliacs today, was planned for outpatient procedure but had some postoperative tachycardia, nausea, mild hypotension. For this reason cardiology prefer to keep the patient overnight for observation, patient then developed hematoma to the right mid thigh area, this was measured at 11 x 9 x 10 cm without any identified connections any vascular structure on ultrasound. Pressure was applied to hematoma for 30-45 min followed placement of sand bag. Patient also unable to urinate at this time, bladder scan showed 664 mL, Mei catheter was attempted unsuccessfully initially. Successful placement of a 12 Armenian coude catheter, bladder was successfully drained. Sandbag placed on patient's right mid thigh, vitals stable at this time, will observe overnight. Case was discussed with cardiology. Hospital Course: Patient was monitored overnight on telemetry, without any acute events. He was feeling much better and back to normal the following morning. His Mei was discontinued, he was able to void without issue. Repeat CT pelvis revealed unchanged/slightly improved hematoma, hemoglobin was stable. He was discharged home - to take ASA 81mg, plavix, and simvastatin was changed to atorvastatin 40mg. Otherwise, he is to resume home medications and follow up with Cardiology in 1 week. Due to technical error- home medications listed below are not up to date. Vital Signs/Physical Exam: Physical Exam: Gen: NAD, AAOx3 HEENT: normal conjunctiva, sclera anicteric CV: RRR, no murmur Pulm: CTAB, diminished at R base Abd: soft, NTND Ext: surgical dressing c/d/i, swelling of R upper thigh Temp Pulse Resp BP Pulse Ox 97.1 F 82 17 147/66 H 98 08/09/20 17:33 08/09/20 17:33 08/09/20 17:33 08/09/20 17:33 08/09/20 16:58 Laboratory Data at Discharge: Hgb 10.2 g/dL (13.6-17.9) L 08/09/20 12:50 Hct 31.4 % (39.6-49.0) L 08/09/20 12:50 Home Medications: Aspirin 81 mg PO DAILY 12/13/13 Cholecalciferol (Vitamin D3) [Vitamin D3] 1,000 iu PO BID 12/13/13 Metformin HCl [Glucophage] 1,000 mg PO BID 12/13/13 Elizabeth-3 Fatty Acids [Elizabeth-3] 1,000 mg PO DAILY 12/13/13 Ubidecarenone [Co Q-10] 200 mg PO DAILY 12/13/13 Budesonide/Formoterol Fumarate [Symbicort 160-4.5 Mcg Inhaler] 1 puff IH BID 12/14/13 Tiotropium [Spiriva Handihaler*] 18 mcg IH DAILYPRN PRN 12/14/13 Albuterol Sulfate [Proair Hfa] 8.5 gm IH DAILYPRN PRN 08/14/14 Iron,Carb/Vit C/Vit B12/Folic [Iron 100 Plus Tablet] 1 each PO DAILY 08/14/14 Potassium Oral Tab [Klor-Con 10 mEq Tab*] 10 meq PO DAILY 08/14/14 Tamsulosin [Flomax*] 0.4 mg PO BEDTIME 08/14/14 Losartan Potassium [Cozaar] 100 mg PO DAILY 10/22/14 Atorvastatin Calcium 40 mg PO BEDTIME 30 Days #30 tablet 08/09/20 New Medications: Atorvastatin Calcium 40 mg PO BEDTIME 30 Days #30 tablet Followup: Ignacio Lee MD [ACTIVE - CAN ADMIT] - (Follow up in 2 weeks) Luann Nj DO [Primary Care Provider] - Time spent managing pt's care (in minutes): 45
--- NOTE | 2020-09-16 13:17 | OP ---
Date of Procedure: 08/08/2020 Surgeon: ASHLEIGH BROWNING Procedures Performed: 1.Right common iliac artery percutaneous intervention using 8 mm x 29 mm Omnilink stent, overlapped distally using 9 mm x 90 mm Omnilink stent. 2.Left common iliac artery percutaneous intervention using a 9 mm x 20 mm Omnilink stent, postdilate d distally using 12 mm x 40 mm Burdett balloon. 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 Access: Right radial artery 6-Greenlandic closed with TR band. Complications: None. Bleeding: Less than 50 mL. Description Of Procedure: After risks, benefits, and alternatives were explained, the patient agreed to proceed and signed informed consent. We then brought the patient to cardiac catheterization labo [facility], prepped and draped in usual sterile fashion. We accessed the right radial artery and placed the a 6-Green[place]ic long destination sheath and then we used a Glidewire to close the right common iliac a rtery. Systemic heparin was given to assure ACT level above 250 and the patient was given loading do se of Plavix 600 mg. Then, the lesion was pre-dilated with multiple balloons and then placed a stent 8 mm x 29 mm Omnilink stent and then overlapped distally by using 9 mm x 90 mm Omnilink stent with e xcellent results and then we moved to intervene on the left side. We passed the Glidewire without di fficulties and then pre-dilated the lesion and then we used a 9 mm x 20 mm Omnilink stent and postdil ated the distal portion using a 12 x 40 mm Burdett balloon with good results and no complications. Conclusions: Successful bilateral common iliac artery stenting as outlined above. Plan: Plavix 600 mg was given and continue 75 mg daily, aspirin 81 mg, and high-dose statin. Discha rge home once criteria are met. SR/MODL Voice ID: [id number] Report ID: [id number]
== END 2020-08-09 17:42 | disposition home or self-care (01) ==
LOC: CCL 11:09 → 2ND 18:18 → CCL 08-09 17:42
PROVIDERS: ATTEND Internal Medicine
DX: I97.638 Postprocedural hematoma of a circulatory system organ or structure following other circulatory system procedure (principal); E11.51 Type 2 diabetes mellitus with diabetic peripheral angiopathy without gangrene; J44.9 Chronic obstructive pulmonary disease, unspecified; I10 Essential (primary) hypertension; E11.9 Type 2 diabetes mellitus without complications; Z85.46 Personal history of malignant neoplasm of prostate; Z85.118 Personal history of other malignant neoplasm of bronchus and lung; F41.9 Anxiety disorder, unspecified; Z79.84 Long term (current) use of oral hypoglycemic drugs; Z87.891 Personal history of nicotine dependence
CPT/HCPCS: 93005; 36415; 82947 ×5; 85347 ×2; 85018 ×4; 85014 ×4; 71250; 72192; 74176; 36200; 37221 ×2; 37223; 76882; C1893; C1725; J1644 ×4; J2250; J3010; J7040; J7030; J2405